=== PATIENT | female | born 1990 | race American Indian/Alaskan Native ===

== ENCOUNTER 2016-06-19 18:45 | Emergency (ER) | payer MEDICAID ==
[2016-06-19 23:45] VITALS: BP 121/84
[2016-06-20] MEDS ORDERED: COLACE PO ONE (00:24)
--- NOTE | 2016-06-20 00:35 | Emergency Department Report ---
ED General Adult HPI - General Chief complaint: Earache Stated complaint: RT EAR PAIN Time Seen by Provider: 06/20/16 00:06 Source: patient Mode of arrival: Ambulatory Limitations: No Limitations - History of Present Illness Initial comments: She complains of progressive right hearing loss x 1 week. States right ear feels clogged up. She tried to clean out her ear hoping it will help. Denies ear pain or discharge, fever, chills, dyspnea, vomiting. Denies recent flight, or illness. States wants to get checked out before her Flight to [place] tomorrow. States otherwise in good health. Severity scale (0 -10): 0 - Related Data Allergies Allergy/AdvReac Type Severity Reaction Status Date / Time Penicillins Allergy Hives Verified 06/19/16 19:02 ED Review of Systems ROS: Stated complaint: RT EAR PAIN Other details as noted in HPI Comment: All other systems reviewed and negative ED Past Medical Hx - Past Medical History Previous Medical History?: No - Surgical History Past Surgical History?: No Additional Surgical History: vaginal delivery - Social History Smoking Status: Never Smoker Substance Use Type: Alcohol ED Physical Exam - General Limitations: No Limitations General appearance: alert, in no apparent distress - Head Head exam: Present: atraumatic, normocephalic - Eye Eye exam: Present: normal appearance, PERRL, EOMI. Absent: scleral icterus, conjunctival injection, periorbital swelling, periorbital tenderness - ENT ENT exam: Present: normal orophraynx, mucous membranes moist, TM's normal bilaterally (left TM unremarkable. R TM not visualized due to cerumen.). Absent : normal external ear exam (R cerumen impaction. R TM not visuallised.) - Neck Neck exam: Present: normal inspection, full ROM. Absent: tenderness, lymphadenopathy - Respiratory Respiratory exam: Present: normal lung sounds bilaterally. Absent: respiratory distress - Cardiovascular Cardiovascular Exam: Present: regular rate, normal rhythm - Neurological Exam Neurological exam: Present: alert, oriented X3, normal gait, reflexes normal. Absent: motor sensory deficit - Psychiatric Psychiatric exam: Present: normal affect, normal mood - Skin Skin exam: Present: warm, dry, intact, normal color. Absent: rash ED Course Vital Signs 06/19/16 06/19/16 18:58 23:43 Temperature 98.8 F 98.4 F Pulse Rate 68 68 Respiratory 18 16 Rate Blood Pressure 139/88 Blood Pressure 121/84 [Right] O2 Sat by Pulse 100 100 Oximetry - Reevaluation(s) Reevaluation #1: 06/20/16 01:04 Right TM still not visualized post 1st lavage attempt w/ Colace. Lavage x 2 will be attempted. Reevaluation #2: 06/20/16 02:24 Patient states no improvement in hearing post R ear lavage x 2. R TM still not visualized. No otalgia. ED Medical Decision Making - Medical Decision Making 26 YOF with right progressive hearing loss and cerumen in right canal. Patient is stable. Right ear Lavage unsuccessful x 2. She will be reffered to ENT specialist at this time. Patient instructed to see ENT specialist prior to flight as unsure how flying would affect her. She verbalized understanding and is agreeable to plan. Critical care attestation.: If time is entered above; I have spent that time in minutes in the direct care of this critically ill patient, excluding procedure time. ED Disposition Clinical Impression: Impacted cerumen of right ear, Unspecified hearing loss, right ear Disposition: DISCHARGED TO HOME OR SELFCARE Is pt being admited?: No Does the pt Need Aspirin: No Condition: Stable Instructions: Cerumen Impaction (ED) Additional Instructions: Follow instructions for care. Follow-up immediately with ENT (ear, nose and throat) specialist for R hearing loss. Preferably before flying. Return to ED for new or worsening condition. Referrals: BELME PARIKH MD [Staff Physician] - 2-3 Days PRIMARY CARE, [Primary Care Provider] - 2-3 Days
[2016-06-20] MEDS ORDERED: HYDROGEN PEROXIDE ONE (01:11)
== END 2016-06-20 02:24 | disposition home or self-care (01) ==
LOC: ED 18:45
DX: H61.21 Impacted cerumen, right ear (principal); H91.91 Unspecified hearing loss, right ear; Z88.0 Allergy status to penicillin
CPT/HCPCS: 99282